=== PATIENT | male | born 1955 | race Caucasian/White ===

== ENCOUNTER 2024-12-11 16:47 | Emergency (ER) | payer OTHER ==
[~2024-12-11] VITALS: Ht 170.2 cm; Wt 75.0 kg
[~2024-12-11 16:47] MED LIST: ALBUPOW26; BUDE160A3; ESOM20CA; IBU800T
[2024-12-11 18:08] VITALS: PULSE 69; RESP 16; O2SAT 97
[2024-12-11 19:30] VITALS: PULSE 68; RESP 14; O2SAT 97
--- NOTE | 2024-12-11 19:44 | ED.PDOC ---
HPI Comments Patient complaining of laceration to the back of his head. 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 Causing laceration. Denies any loss of consciousness. Bleeding controlled. Chief Complaint: Laceration Time Seen by MD: 17:48 Primary Care Provider: MIGEL Reviewed Notes: Nurses Notes Allergies: Coded Allergies: Acetaminophen (Verified Adverse Reaction, Unknown, 01/30/12) Hydrocodone (Verified Adverse Reaction, Unknown, 01/30/12) Home Meds Reported Medications Ibuprofen Micronized (Motrin) 800 Mg Tb 01/30/12 Esomeprazole Magnesium Trihydr (Nexium) 20 Mg Cap 01/30/12 Budesonide-Formoterol Fumarate (Symbicort) 1 Aer Aer 01/30/12 [Albuterol] (Albuterol) No Conflict Check 09/16/11 Information Source: Patient Mode of Arrival: EMS Complexity: Simple Laceration Length (cm): 3 Skin Type: Linear Past Medical History PAST MEDICAL HISTORY: Denies Family History Family History: Unobtainable Social History Alcohol: Occasionally Lives In: Home Constitutional: denies: chills, diaphoresis, fatigue, fever, malaise, sweats, weakness, others EENTM: denies: blurred vision, double vision, ear bleeding, ear discharge, ear drainage, ear pain, ear ringing, eye pain, eye redness, hearing loss, mouth pain, mouth swelling, nasal discharge, nose bleeding, nose congestion, nose pain, photophobia, tearing, throat pain, throat swelling, voice changes, others Respiratory: denies: cough, hemoptysis, orthopnea, SOB at rest, shortness of breath, SOB with excertion, stridor, wheezing, others Cardiovascular: denies: chest pain, dizzy spells, diaphoresis, Dyspnea on exertion, edema, irregular heart beat, left arm pain, lightheadedness, palpitations, PND, syncope, others Gastrointestinal: denies: abdomen distended, abdominal pain, blood streaked bowels, constipated, diarrhea, dysphagia, difficulty swallowing, hematemesis, melena, nausea, poor appetite, poor fluid intake, rectal bleeding, rectal pain, vomiting, others Genitourinary: denies: burning, dysuria, flank pain, frequency, hematuria, incontinence, penile discharge, penile sore, pain, testicle pain, testicle swelling, urgency, others Neurological: denies: dizziness, fainting, headache, left sided numbness, left sided weakness, numbness, paresthesia, pre-existing deficit, right sided numbness, right sided weakness, seizure, speech problems, tingling, tremors, weakness, others Musculoskeletal: denies: back pain, gout, joint pain, joint swelling, muscle pain, muscle stiffness, neck pain, others Integumetry: reports: laceration (Posterior scalp); denies: bruises, change in color, change in hair/nails, dryness, lesions, lumps, rash, wounds, others Physical Exam General Appearance: No Apparent Distress, Normal HEENT: Normal ENT Inspection, Pharynx Normal, TMs Normal Neck: Full Range of Motion, Non-Tender, Normal, Normal Inspection Respiratory: Chest Non-Tender, Lungs Clear, No Accessory Muscle Use, No Respiratory Distress, Normal Breath Sounds Cardiovascular: No Edema, No JVD, No Murmur, No Gallop, Normal Peripheral Pulses, Regular Rate/Rhythm Breast Exam: Deferred Gastrointestinal: No Organomegaly, Non Tender, No Pulsatile Mass, Normal Bowel Sounds, Soft Genitalia: Deferred Pelvic: Deferred Rectal: Deferred Extremities: No calf tenderness, Normal capillary refill, Normal inspection, Normal range of motion, Non-tender, No pedal edema Musculoskeletal : Apperance: Normal Neurologic: Alert, biological inspector II-XII nml as Tested, No Motor Deficits, Normal Affect, Normal Mood, No Sensory Deficits Cerebellar Function: Normal Reflexes: Normal Skin: Dry, Lacerations, Normal Color, Warm Lymphatic: No Adenopathy Was a procedure done? Was a procedure done?: Yes Sedation Sedation?: No Differential diagnosis Suture Removal: Cellulitis Generic Laceration: Tendon Injury, Abrasion/Contusion, Laceration X-Ray, Labs, Meds, VS Vital Signs Date Time Temp Pulse Resp B/P (MAP) Pulse Ox O2 Delivery O2 Flow Rate FiO2 12/11/24 18:13 97 Room Air* 0 21 12/11/24 18:08 69 16 97 Room Air* 0 21 12/11/24 18:00 98.3 69 16 124/70 (88) 97 98.3 12/11/24 16:56 98.6 72 16 138/72 (94) 99 98.6 Lab Test 12/11/24 17:58 Range/Units POC Glucose 86 70-106 mg/dl X-Ray, Labs, Meds, VS Comment Imaging: X-rays and CT scans were reviewed and interpreted by this provider, imaging shows no fractures and no pathological disease. Pending radiology review. Laboratory: Labs reviewed and interpreted by this provider. No significant abnormalities noted. Patient has prior medical visits reviewed. Med reconciliation performed Vital signs reviewed Time of 1ST Reevaluation: 19:43 Reevaluation 1ST: Unchanged Patient Education/Counseling: Diagnosis, Treatment, Need For Follow Up (Follow up in two days for wound recheck, follow up in 7-10 days for staple removal) Family Education/Counseling: Diagnosis Departure 1 Departure Time of Disposition: 19:43 Impression: Primary Impression: Scalp laceration Qualified Codes: S01.01XA - Laceration without foreign body of scalp, initial encounter Disposition: HOME / SELF CARE / HOMELESS Condition: Fair Discharged With: Self Critical Care Note Critical Care Time?: No Stability Stability form required: No Heart Score Heart Score: Heart Score Response (Comments) Value History N/A 0 EKG N/A 0 Age N/A 0 Risk Factors N/A 0 Troponin N/A 0 Total 0 DALIA VOGEL PEDIATRIC PHYSICIAN Dec 11, 2024 19:44
[2024-12-11 19:58] VITALS: BP 123/68; PULSE 68; RESP 14; TEMP 98; O2SAT 97
== END 2024-12-11 20:09 | disposition home or self-care (01) ==
LOC: EDUNIT# 16:47 → EDBD 16:47 → EDSEX 16:47 → ER 16:47
DX: S01.01XA Laceration without foreign body of scalp, initial encounter (principal); F10.90 Alcohol use, unspecified, uncomplicated; Z88.5 Allergy status to narcotic agent; Z79.51 Long term (current) use of inhaled steroids; Z79.899 Other long term (current) drug therapy; W22.03XA Walked into furniture, initial encounter; Y93.89 Activity, other specified; Y92.89 Other specified places as the place of occurrence of the external cause; Y99.8 Other external cause status; Y90.9 Presence of alcohol in blood, level not specified
CPT/HCPCS: 12002; 82947; 82962